=== PATIENT | male | born 1980 | race Caucasian/White ===

== ENCOUNTER 2017-02-10 19:39 | Emergency (ER) | payer OTHER ==
[2017-02-10 19:47] VITALS: TEMP 98.3; O2SAT 100
[2017-02-10 20:38] LABS: BASO # 0.1 K/uL (0.0-0.2); BASO % 0.8 % (0.0-2.0); EOS # 0.2 K/uL (0.0-0.7); EOS % 2.3 % (0.0-4.0); LYMPH % 19.9 % (20.0-40.0); MEAN CORPUSCULAR HEMOGLOBIN 29.3 pg (27.0-31.0); MEAN PLATELET VOLUME 6.8 fl (7.2-11.7); MONO # 0.8 K/uL (0.0-0.8); MONO % 8.1 % (0.0-10.0); NEUT # 7.1 K/uL (1.8-7.0); NEUT % 68.9 % (50.0-75.0); NRBC % 0.1 % (0.0-0.0); RED CELL DISTRIBUTION WIDTH 13.5 % (11.5-14.5); WHITE BLOOD COUNT 10.3 K/uL (4.8-10.8)
--- NOTE | 2017-02-10 20:48 | ED PDOC ---
HPI: Chest Pain Time Seen by Provider: 02/10/17 19:52 Chief Complaint (Nursing): Chest Pain Chief Complaint (Provider): Chest Pain History Per: Patient History/Exam Limitations: no limitations Onset/Duration Of Symptoms: Days (x1) Current Symptoms Are (Timing): Still Present Additional Complaint(s): Markel Batista is a 36 year old male with previous medical history of hypertension, who presents to the emergency department with a complaint of left hand cramping and numbness around the mouth lasting 15 minutes today. Also report "slight" midsternal chest pain that lasted 30 seconds. Denied any fever, chills, leg swelling or pain. Patient stated he had a similar episode in the past and was evaluated at another hospital in [place] that diagnosed him with anxiety. PMD: Tony Martin MD Past Medical History Reviewed: Historical Data, Nursing Documentation, Vital Signs Vital Signs: Last Vital Signs Temp 98.3 F 02/10/17 19:44 Pulse 89 02/10/17 19:44 Resp 16 02/10/17 19:44 BP 149/91 H 02/10/17 19:44 Pulse Ox 100 02/10/17 23:10 - Medical History PMH: HTN, Hypercholesterolemia - Family History Family History: States: Unknown Family Hx - Social History Current smoker - smoking cessation education provided: No Alcohol: None Drugs: Denies - Allergies Allergies/Adverse Reactions: Allergies Allergy/AdvReac Type Severity Reaction Status Date / Time No Known Allergies Allergy Verified 02/10/17 19:44 PASQUALE Risk Score for UA/NSTEMI - PASQUALE Risk Score Age > 64: NO 3 or more CAD Risk Factors: NO Known CAD (Stenosis greater than 50%): NO Aspirin use in past 7 days: NO Severe Angina: NO EKG ST changes greater than 0.5mm: NO Positive Cardiac Marker: NO PASQUALE Score: 0 Risk %: 5% Review of Systems ROS Statement: Except As Marked, All Systems Reviewed And Found Negative Constitutional: Negative for: Fever, Chills Cardiovascular: Positive for: Chest Pain (light midsternal) Musculoskeletal: Positive for: Hand Pain (cramping of left hand). Negative for : Leg Pain (or swelling) Neurological: Positive for: Numbness (around mouth) Physical Exam - Reviewed Nursing Documentation Reviewed: Yes Vital Signs Reviewed: Yes - Physical Exam Appears: Positive for: Well, Non-toxic, No Acute Distress Head Exam: Positive for: ATRAUMATIC, NORMAL INSPECTION, NORMOCEPHALIC Cardiovascular/Chest: Positive for: Regular Rate, Rhythm. Negative for: Chest Non Tender Respiratory: Positive for: Normal Breath Sounds. Negative for: Crackles, Rales , Rhonchi, Wheezing, Respiratory Distress Gastrointestinal/Abdominal: Positive for: Normal Exam, Bowel Sounds, Soft. Negative for: Tenderness Extremity: Positive for: Normal ROM, Other (Varicose veins). Negative for: Tenderness, Pedal Edema, Calf Tenderness, Deformity, Swelling Neurologic/Psych: Positive for: Alert, adolescent psychiatrist II-XII, Oriented. Negative for: Motor/Sensory Deficits - Laboratory Results Result Diagrams: 02/10/17 20:34 02/10/17 20:34 - ECG Interpretation Of ECG: NSR @ 91, no ST-T changes. O2 Sat by Pulse Oximetry: 100 (RA) Pulse Ox Interpretation: Normal Medical Decision Making Medical Decision Making: Initial Impression: Chest pain Initial Plan: * EKG * Labs * Troponin I * D Dimer * PTT * PT * CXR Time: 2226 --CT angio chest FINDINGS: Limitations: The examination is mildly degraded by breathing artifact. Pulmonary arteries: No acute embolus in the main, lobar, segmental or subsegmental pulmonary arteries. Aorta: No dissection or other acute abnormality of the imaged aorta. Ectatic ascending aorta. Lungs: Patchy ground glass opacity in both lower lobes. The central airways are patent. Pleural space: No pleural fluid collection. No pneumothorax. Heart: No cardiomegaly. No pericardial fluid collection. Mediastinum: Small hiatal hernia. Bones/joints: No acute findings. Soft tissues: No acute findings. Lymph nodes: Several borderline enlarged mediastinal lymph nodes. IMPRESSION: 1. No acute pulmonary embolus or thoracic aortic dissection. 2. Patchy ground glass opacity in both lower lobes. Differential diagnosis includes but is not limited to subsegmental atelectasis, pulmonary edema, and an atypical or viral pneumonia. 3. Several borderline enlarged mediastinal lymph nodes, nonspecific in nature. 4. Additional nonacute findings as described above. Pt given copy of labs and CT report. Time: 2315 Labs reviewed and are within normal limits. Patient is stable for discharge home ; pt advised to follow up with PCP in 1-2 days and to return to the ED if symptoms worsen or new symptoms arise. Scribe Attestation: Documented by Amanda Tijerina and Milena Zaldivar, acting as a scribe for Evangelina Rodney MD. Provider Scribe Attestation: All medical record entries made by the Scribe were at my direction and personally dictated by me. I have reviewed the chart and agree that the record accurately reflects my personal performance of the history, physical exam, medical decision making, and the department course for this patient. I have also personally directed, reviewed, and agree with the discharge instructions and disposition. Disposition - Clinical Impression Clinical Impression: Atypical chest pain - Disposition Referrals: Rico Odom [Outside] Disposition: Routine/Home Disposition Time: 23:15 Condition: STABLE Additional Instructions: FOLLOW-UP WITH YOUR PMD WITHIN 2 DAYS FOR REEVALUATION. Instructions: Chest Pain (ED) Forms: [employer] (Romanian)
[2017-02-10 20:57] LABS: ALB/GLOB RATIO 1.3 (1.0-2.1); ALKALINE PHOSPHATASE 68 U/L (38-126); ALT/SGPT 41 U/L (21-72); AST/SGOT 32 U/L (17-59); BILIRUBIN,TOTAL 0.5 mg/dl (0.2-1.3); BLOOD UREA NITROGEN 7 mg/dl (9-20); CARBON DIOXIDE 23 mmol/L (22-30); CHLORIDE 105 mmol/L (98-107); GFR AFRICAN-AMERICAN > 60; GLUCOSE,RANDOM 97 mg/dL (75-110); POTASSIUM 3.6 MMOL/L (3.6-5.0); SODIUM 139 mmol/l (132-148); TOTAL PROTEIN 7.9 G/DL (6.3-8.2)
[2017-02-10 20:58] LABS: PARTIAL THROMBOPLASTIN TIME 36.5 Seconds (25.6-37.1)
[2017-02-10] MEDS ORDERED: Iodixanol 320 MG/ML 100 ML BOTTLE IV ONE (21:31)
[2017-02-10] MEDS ORDERED: Sodium Chloride 0.9% 50 ML IV ONE (21:31)
[2017-02-10 23:17] VITALS: BP 122/68; PULSE 74; RESP 18
--- NOTE | 2017-02-11 07:49 | CT ---
PROCEDURE: CT Chest with contrast (Pulmonary Angiogram) HISTORY: CP COMPARISON: None available. TECHNIQUE: Axial computed tomography images were obtained of the chest in the pulmonary arterial phase of enhancement. Coronal and sagittal reformatted images were created and reviewed. Intravenous contrast dose: Visipaque 320, 90 cc. Radiation dose: Total exam DLP = 412 mGy-cm. This CT exam was performed using one or more of the following dose reduction techniques: Automated exposure control, adjustment of the mA and/or kV according to patient size, and/or use of iterative reconstruction technique. FINDINGS: PULMONARY ARTERIES: Unremarkable. No pulmonary embolism. AORTA: No acute findings. No thoracic aortic aneurysm. LUNGS: Limited bilateral basilar dependent atelectasis and nonspecific ground-glass opacity at the lower lobes. No alveolar infiltrate identified bilaterally. No definitive pulmonary mass appreciable. Central airways appear clear. PLEURAL SPACES: Unremarkable. No effusion or pneuomothorax. HEART: Unremarkable. No cardiomegaly. No significant pericardial effusion. LYMPH NODES: No lymphadenopathy. BONES, CHEST WALL: Unremarkable. No fracture or destructive lesion OTHER FINDINGS: Small hiatal hernia encountered. IMPRESSION: Unremarkable CT pulmonary angiogram. No pulmonary embolus. Limited bilateral basilar dependent atelectasis is appreciated as well as somewhat ground-glass opacity at the below bilateral bases as well, of uncertain origin. Concordant V rad preliminary report submitted 02/10/2017.
--- NOTE | 2017-02-11 11:12 | RAD ---
HISTORY: CP COMPARISON: No prior. TECHNIQUE: Chest PA and lateral FINDINGS: LUNGS: No active pulmonary disease. PLEURA: No significant pleural effusion identified. No pneumothorax apparent. CARDIOVASCULAR: Normal. OSSEOUS STRUCTURES: No significant abnormalities. VISUALIZED UPPER ABDOMEN: Normal. OTHER FINDINGS: None. IMPRESSION: No acute cardiopulmonary disease appreciated.
--- NOTE | 2017-02-12 18:22 | CARD ---
APPROVED REPORT EKG Measurement Heart [id number] VT [id number] <Conclusion> Normal sinus rhythm Possible Left atrial enlargement Borderline ECG
== END 2017-02-10 23:19 | disposition home or self-care (01) ==
LOC: H.ER 19:39
DX: R07.89 Other chest pain (principal); F41.9 Anxiety disorder, unspecified; I10 Essential (primary) hypertension
CPT/HCPCS: 71020; 71275; 80053; 84484; 85025; 85378; 85610; 85730; 93005; 99282; Q9967